=== PATIENT | female | born 1955 | race Caucasian/White ===

== ENCOUNTER 2017-03-12 13:23 | Emergency (ER) | payer MEDICAID ==
[~2017-03-12] VITALS: Ht 172.7 cm; Wt 68.0 kg
[~2017-03-12 13:23] MED LIST: ALBU0.63 NEB; ALPR-475 PO; ATOR10TA PO; BENZ100C4 PO; DULO20CA45 PO; FLUT9.9S NAS; HYDR-3241 PO; IPRA30SP2 IH; MIRT15TA3 PO; OMEP-110 PO; OXYC-229 PO; RISP1TAB3 PO; RISP2TAB3 PO; ZOLP-413 PO
[2017-03-12] MEDS ORDERED: KETOROLAC 30 MG/1 ML IM ONE (14:00)
[2017-03-12] MEDS ORDERED: KETOROLAC 30 MG/1 ML ONE (14:16)
[2017-03-12 14:40] LABS: BLOOD UREA NITROGEN 8 mg/dL (7-18)
[2017-03-12 14:48] LABS: IS PT STATUS REG ER OR PRE ER? YES
[2017-03-12 15:20] VITALS: BP 104/62
[2017-03-12 16:23] LABS: HEMOGLOBIN 13.7 g/dL (11.7-16.4)
== END 2017-03-12 16:56 | disposition home or self-care (01) ==
LOC: ED 16:40
DX: R07.89 Other chest pain (principal); F17.210 Nicotine dependence, cigarettes, uncomplicated; Z90.710 Acquired absence of both cervix and uterus
CPT/HCPCS: 36415; 71020; 80048; 82040; 83880; 84484; 85025; 93005; 96372; 99285; J1885

== ENCOUNTER 2019-05-20 08:42 | Outpatient (CLI) | payer OTHER ==
[~2019-05-20 08:42] MED LIST changes: +BENZ-17 PO; -BENZ100C4 PO; -OXYC-229 PO; +OXYC-307 PO; +REGADENOSON 0.4 MG/5 ML SYRINGE ONE
== END 2019-05-20 23:59 | disposition home or self-care (01) ==
LOC: CFH 08:42
PROVIDERS: ATTEND Internal Medicine Cardiovascular Disease
DX: I07.1 Rheumatic tricuspid insufficiency (principal)
CPT/HCPCS: 78452; 93017; 93306; A9502; J2785